=== PATIENT | male | born 1975 | race Two or more races ===

== ENCOUNTER 2019-02-14 10:06 | Emergency (ER) | payer SELFPAY ==
[~2019-02-14] VITALS: Ht 170.2 cm; Wt 61.3 kg
[2019-02-14 10:30] VITALS: BP 140/79
== END 2019-02-14 12:00 | disposition left against medical advice (07) ==
LOC: EMS 10:19
DX: Z53.21 Procedure and treatment not carried out due to patient leaving prior to being seen by health care provider (principal)

== ENCOUNTER 2019-02-14 13:22 | Emergency (ER) | payer OTHER ==
[~2019-02-14] VITALS: Ht 170.2 cm; Wt 70.5 kg
[2019-02-14 18:17] VITALS: BP 160/100
== END 2019-02-14 18:53 | disposition home or self-care (01) ==
LOC: EMS 13:23
DX: F10.10 Alcohol abuse, uncomplicated (principal); R03.0 Elevated blood-pressure reading, without diagnosis of hypertension; Y90.9 Presence of alcohol in blood, level not specified